=== PATIENT | male | born 1965 | race Caucasian/White ===

== ENCOUNTER 2023-06-04 06:43 | Outpatient (RCR) | payer OTHER, SELFPAY | END 2023-06-04 23:59 | disposition home or self-care (01) | LOC: RPT 06:43 | PROVIDERS: ATTENDING PHYSICIAN Specialist; FAMILY PHYSICIAN Family Medicine | DX: Z47.1 Aftercare following joint replacement surgery (principal); Z96.651 Presence of right artificial knee joint; M17.11 Unilateral primary osteoarthritis, right knee; R26.89 Other abnormalities of gait and mobility; Z73.6 Limitation of activities due to disability | CPT/HCPCS: 97010; 97110; 97140; 97162; 97530 ==

== ENCOUNTER 2023-06-24 09:02 | Outpatient (RCR) | payer OTHER, SELFPAY | END 2023-06-24 23:59 | disposition home or self-care (01) | LOC: RPT 09:02 | PROVIDERS: ATTENDING PHYSICIAN Specialist; FAMILY PHYSICIAN Family Medicine | DX: Z47.1 Aftercare following joint replacement surgery (principal); Z96.651 Presence of right artificial knee joint; M17.11 Unilateral primary osteoarthritis, right knee; R26.89 Other abnormalities of gait and mobility; Z73.6 Limitation of activities due to disability | CPT/HCPCS: 97010; 97110; 97140 ==

== ENCOUNTER 2023-07-30 06:42 | Outpatient (RCR) | payer OTHER, SELFPAY | END 2023-07-30 23:59 | disposition home or self-care (01) | LOC: RPT 06:42 | PROVIDERS: ATTENDING PHYSICIAN Specialist; FAMILY PHYSICIAN Family Medicine | DX: Z47.1 Aftercare following joint replacement surgery (principal); Z96.651 Presence of right artificial knee joint; M17.11 Unilateral primary osteoarthritis, right knee; Z73.6 Limitation of activities due to disability | CPT/HCPCS: 97010; 97110; 97140; 97530 ==

== ENCOUNTER 2023-08-09 06:27 | Emergency (ER) | payer OTHER, SELFPAY ==
[2023-08-09 06:37] VITALS: BP 161/104
[2023-08-09 06:59] VITALS: BMI 32.0
--- NOTE | 2023-08-09 07:23 | ED.GENMED ---
History of Present Illness
General
Chief Complaint: Skin Problem
Source: patient
Exam Limitations: none
Time Seen by Provider: 08/09/23 06:56
Nursing documentation reviewed up to this point in time: agreed with
Travel History
Have you had any contact with someone who has COVID-19?: No
Do you have any symptoms of coronavirus? Fever > 100 degrees, chills, cough, shortness of breath, sore throat, loss of taste or smell, muscle aches, or headache?: No
History of Present Illness
History of Present Illness:
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
cutting weight for wrestling no involvement of his eye,
Past History
Past History
ED Past Medical History: Other (Shingles)
ED Past Surgical History: Orthopedic
Social History
Tobacco: Non-smoker
Alcohol: None
Drug: None
Personal:
Living: with family
Employment: Employed
Review of Systems
Review of Systems
All Other Systems: Not applicable
Constitutional: Denies fever or fatigue
Respiratory: Denies trouble breathing
Skin: Reports itching, rash and other (Painful rash)
Phy Exam
Physical Exam
Physical Exam:
Physical Exam
General: no apparent distress, not acutely ill
Neck: Zoster type rash right mid posterior neck into the shoulder on the right not involving the face
Heart: s1/s2 regular rate and rhythm, no murmur. equal radial pulses.
Lungs: no acute respiratory distress. clear bilaterally
Neuro: alert and oriented. no focal neurological deficits
Skin: Described
Psychiatric: well kept. interactive and cooperative
Extremities: no edema.
Course
Orders/Labs/Results
Orders:
Orders
08/09/23 07:13
Oxycodone/Acetaminophen [Percocet 5/325] 1 tablet PO NOW STA
Valacyclovir HCl [Valtrex] 1,000 mg PO NOW STA
Viscous Lidocaine 2% [Xylocaine Viscous Cup] 15 ml S NOW STA
Vital Signs
Initial and Last Documented VS:
Initial Vital Signs
Temp Pulse Resp BP Pulse Ox
97.8 F 69 16 161/104 98
08/09/23 06:37 08/09/23 06:37 08/09/23 06:37 08/09/23 06:37 08/09/23 06:37
Last Documented Vital Signs
Temp Pulse Resp BP Pulse Ox
97.8 F 69 16 161/104 98
08/09/23 06:37 08/09/23 06:37 08/09/23 06:37 08/09/23 06:37 08/09/23 06:37
MDM/Problems Addressed
Differential Diagnosis Includes:
Shingles cellulitis contusion
MDM/Problems Addressed:
Looks like shingles
*Pulse Oximetry
Patient hypoxic: no
*Critical Care Note
Total Time (30-74mins, 75-104mins- exclusive of procedures): Not Applicable
Update Note
Update Note:
Looks like shingles had 2 doses of acyclovir we will switch to Valtrex, topical lidocaine as needed Motrin Oxy
ED Attending Note
-
Portions of this chart may have been created with voice recognition software.� Occasional wrong word or��sound alike� substitutions may have occurred due to the inherent limitations of voice recognition software.
Discharge Plan
Departure
Patient Disposition: Home (Routine Discharge)
Date of Disposition: 08/09/23
Time of Disposition: 07:17
Patient with high blood pressure during this ER visit?: No
Condition: Good
Covid-19: Not Applicable
Discharge Problem:
Shingles rash
Instructions: Shingles
Prescriptions:
New
ibuprofen 600 mg tablet
600 mg PO Q8H PRN (Reason: Pain) Qty: 20 0RF
valacyclovir [Valtrex] 1 gram tablet
1,000 mg PO BID Qty: 20 0RF
oxycodone 5 mg tablet
5 mg PO Q6H PRN (Reason: Pain) Qty: 14 0RF
lidocaine HCl [Lidocaine Viscous] 2 % solution
10 ml topical BID PRN (Reason: Pain) Qty: 100 0RF
No Action
tamsulosin 0.4 MG capsule
0.4 mg PO DAILY
cyanocobalamin (vitamin B-12) 1,000 MCG tablet
500 mcg PO DAILY
calcium carbonate 500 MG tablet,chewable
500 mg PO DAILY
turmeric root extract 500 MG capsule
500 mg PO DAILY
[id number]-[id number]-ogg-epa-fish oil 1 EACH capsule
1 ea PO DAILY
ergocalciferol (vitamin D2) 50 MCG capsule
50 mcg PO DAILY
Referrals:
Moustapha Swanson DO [Family Provider] - Next open appointment
Interventions
Interventions:
*Risk Screen - Suicide Last Done: 08/09/23 06:37
*General Assessment Last Done: 08/09/23 06:37
*Neglect/Abuse Screening Last Done: 08/09/23 06:37
ED- Fall Risk Assessment Last Done: 08/09/23 06:37
*ED COVID-19 Vaccine History Last Done: 08/09/23 06:37
ED-Skin Assessment Last Done: 08/09/23 06:59
Discharge Date and Time
Print Language: DIVEHI
[2023-08-09] MEDS: PERCOCET 5/325 1 TABLET PO (07:38)
[2023-08-09] MEDS: XYLOCAINE VISCOUS CUP 15 ML S (07:38)
[2023-08-09] MEDS: VALTREX 1000 MG PO (07:38)
[2023-08-09 09:38] VITALS: BP 156/115
== END 2023-08-09 09:39 | disposition home or self-care (01) ==
LOC: EMR 06:27
PROVIDERS: EMERGENCY PHYSICIAN Emergency Medicine; FAMILY PHYSICIAN Family Medicine
DX: B02.9 Zoster without complications (principal)
CPT/HCPCS: 99282

== ENCOUNTER 2023-08-20 06:53 | Outpatient (RCR) | payer OTHER, SELFPAY | END 2023-08-20 10:54 | disposition home or self-care (01) | LOC: RPT 06:53 | PROVIDERS: ATTENDING PHYSICIAN Specialist; FAMILY PHYSICIAN Family Medicine | DX: Z47.1 Aftercare following joint replacement surgery (principal); Z96.651 Presence of right artificial knee joint; M17.11 Unilateral primary osteoarthritis, right knee; Z73.6 Limitation of activities due to disability | CPT/HCPCS: 97010; 97110; 97140; 97530 ==

== ENCOUNTER 2024-05-08 11:13 | Emergency (ER) | payer OTHER, SELFPAY ==
[2024-05-08 11:16] VITALS: BP 151/100
[2024-05-08 11:39] LABS: Urine Albumin Negative (Neg - Trace); Urine Bilirubin Negative (Negative); Urine Character Clear (Clear); Urine Color Yellow; Urine Glucose Negative (Negative); Urine Ketone Negative (Negative); Urine Leukocyte Negative (Negative); Urine Nitrite Negative (Negative); Urine Occult Blood 4+ (Negative); Urine Urobilinogen Negative (Neg - 1+); Urine pH 6.5 (5.0-9.0)
--- NOTE | 2024-05-08 11:40 | ED.GENMED ---
History of Present Illness
General
Chief Complaint: Flank Pain
Source: patient
Exam Limitations: none
Time Seen by Provider: 05/08/24 11:35
Nursing documentation reviewed up to this point in time: agreed with
History of Present Illness
History of Present Illness:
58-year-old male with history of kidney stones states 2 days ago he developed right lower abdominal pain, it subsided some then came back today in the right flank area now 5/10. He denies fever or chills. Denies nausea or vomiting. He states his
urine was dark yesterday and today he feels a little discomfort with urination.
Past History
Past History
ED Past Medical History: Other (Sleep apnea with CPAP), Other (Kidney stones) and Other (Shingles)
ED Past Surgical History: Orthopedic and Tonsilectomy
Social History
Tobacco: Non-smoker
Alcohol: None
Drug: None
Personal:
Living: with family
Employment: Employed
Review of Systems
Review of Systems
Allergies reviewed?: Yes
All Other Systems: ROS reviewed and negative except as documented in HPI and ROS
Constitutional: Denies fever or chills
Respiratory: Denies trouble breathing
Cardiac: Denies chest pain
ABD/GI: Reports abdominal pain; Denies nausea, vomiting or diarrhea
: Reports dysuria (Mild discomfort with urination today) and dark urine; Denies frequency or difficulty voiding
Musculoskeletal: Reports no symptoms
Skin: Reports no symptoms
Neurological: Reports no symptoms
Phy Exam
Physical Exam
Physical Exam:
GENERAL: No acute distress. A&Ox3.
CONSTITUTIONAL: Afebrile.
EYES: clear, conjunctivae normal
ENMT: moist mucus membranes
RESPIRATORY: Regular respirations, nonlabored, lungs clear.
CARDIOVASCULAR: Regular rate and rhythm, no murmurs, no rubs.
GI: Soft, nontender, normal BS, right flank tenderness to percussion
MUSCULOSKELETAL: Moves with ease. Well perfused.
SKIN: Warm, dry, pink
PSYCH: Normal mood and affect. Well kept, interactive and appropriate
NEUROLOGIC: Awake, alert and oriented. No focal neurological deficits
Course
Orders/Labs/Results
Orders:
Orders
05/08/24 11:24
Urinalysis Reflex To Culture Urgent
Date Specimen was Collected: 05/08/24
Time Specimen was Collected: 11:21
Urine Microscopic Reflex Cult Urgent
05/08/24 11:39
CT Abd/pel Without Iv Or Oral Urgent
Comment:
Reason For Exam: R flank pain hx stones
05/08/24 11:51
Complete Blood Count/With Diff Urgent
Comprehensive Metabolic Panel Urgent
Ketorolac [Toradol] 15 mg IV NOW STA
05/08/24 13:10
Tamsulosin [Flomax] 0.4 mg PO NOW STA
Abnormal Lab Results
05/08/24 05/08/24
11:24 11:51
WBC 4.7 L 10^3/uL
(4.8-10.8)
Absolute Lymphs (auto) 1.0 L 10^3/uL
(1.2-3.4)
Total Bilirubin 1.8 H mg/dl
(0.2-1.3)
Ur Occult Blood Reflex 4+ A
(Negative)
Urine RBC 16-20 A /HPF
(0-2)
05/08/24 11:51
05/08/24 11:51
Vital Signs
Initial and Last Documented VS:
Initial Vital Signs
Temp Pulse Resp BP Pulse Ox
97.5 F 74 18 151/100 99
05/08/24 11:16 05/08/24 11:16 05/08/24 11:16 05/08/24 11:16 05/08/24 11:16
Last Documented Vital Signs
Temp Pulse Resp BP Pulse Ox
97.5 F 74 18 151/100 97
05/08/24 11:16 05/08/24 11:16 05/08/24 11:16 05/08/24 11:16 05/08/24 12:15
MDM/Problems Addressed
Differential Diagnosis Includes:
Kidney stone, UTI
MDM/Problems Addressed:
58-year-old male with history of kidney stones states 2 days ago he developed right lower abdominal pain, it subsided some then came back today in the right flank area now 5/10. He denies fever or chills. Denies nausea or vomiting. He states his
urine was dark yesterday and today he feels a little discomfort with urination.
Afebrile, NAD
12:45 PM:
CBC normal
CMP with no clinically significant abnormality
UA: 4+ blood, 16-20 RBCs, no infection
CT abdomen pelvis plain: Radiology report read: IMPRESSION:
Approximate 3 mm calculus at the distal right ureterovesical junction with mild right hydroureteronephrosis.
Tiny nonobstructing left renal calculus.
Small simple right renal cyst.
Unremarkable appendix.
Colonic diverticulosis.
1:15 PM:
Pt pain is minimal. Stable for discharge
Pt referred to Urology for f/u
BP 132/78
*Critical Care Note
Total Time (30-74mins, 75-104mins- exclusive of procedures): Not Applicable
ED Attending Note
-
Portions of this chart may have been created with voice recognition software.� Occasional wrong word or��sound alike� substitutions may have occurred due to the inherent limitations of voice recognition software.
Discharge Plan
Departure
Patient Disposition: Home (Routine Discharge)
Date of Disposition: 05/08/24
Time of Disposition: 13:26
Patient with high blood pressure during this ER visit?: No
Condition: Good
Discharge Problem:
Calculus of distal right ureter
Instructions: Kidney Stones (DC), How to Strain Your Urine
Prescriptions:
New
tamsulosin [Flomax] 0.4 mg capsule
0.4 mg PO DAILY Qty: 5 0RF
hydrocodone-acetaminophen 5-300 mg tablet
1 tab PO Q4H PRN (Reason: Pain) Qty: 7 0RF
No Action
tamsulosin 0.4 MG capsule
0.4 mg PO DAILY
cyanocobalamin (vitamin B-12) 1,000 MCG tablet
500 mcg PO DAILY
calcium carbonate 500 MG tablet,chewable
500 mg PO DAILY
turmeric root extract 500 MG capsule
500 mg PO DAILY
[id number]-ylc-epa-fish oil 1 EACH capsule
1 ea PO DAILY
ergocalciferol (vitamin D2) 50 MCG capsule
50 mcg PO DAILY
ibuprofen 600 mg tablet
600 mg PO Q8H PRN (Reason: Pain) Qty: 20 0RF
valacyclovir [Valtrex] 1 gram tablet
1,000 mg PO BID Qty: 20 0RF
oxycodone 5 mg tablet
5 mg PO Q6H PRN (Reason: Pain) Qty: 14 0RF
lidocaine HCl [Lidocaine Viscous] 2 % solution
10 ml topical BID PRN (Reason: Pain) Qty: 100 0RF
Referrals:
Moustapha Swanson DO [Family Provider] -
Tripp Mayer MD [Active] - Call in 1-3 days for appt
Activity Restrictions/Additional Instructions:
As we discussed, ibuprofen 600 mg every 6 hours as needed for pain.
I sent a prescription for Flomax to your pharmacy, started tomorrow as you were given a dose here today
Return here immediately for fever, chills, worsening pain despite the ibuprofen, vomiting or feeling sicker in any way
Call the Urologist tomorrow
Interventions
Interventions:
*Risk Screen - Suicide Last Done: 05/08/24 11:16
*General Assessment Last Done: 05/08/24 11:16
*Neglect/Abuse Screening Last Done: 05/08/24 11:16
*ED COVID-19 Vaccine History Last Done: 05/08/24 11:54
*Nursing Disposition Last Done: 05/08/24 14:01
WT-Yycnbc-Iffhiknltx Assessment Last Done: 05/08/24 12:01
ED-Male Genitourinary Assessment Last Done: 05/08/24 12:01
Discharge Date and Time
Discharge Date/Time: 05/08/24 14:01
Print Language: EMIRATI
[2024-05-08] MEDS: TORADOL 15 MG IV (11:53)
[2024-05-08 11:54] LABS: Urine Red Blood Cell 16-20 /HPF (0-2); Urine White Cell 0-2 /HPF (0-5)
[2024-05-08 12:07] LABS: % Basophils 1.5 % (0-2); % Eosinophils 2.5 % (0-6); % Immature Granulocytes 0.2 % (0-0.5); % Lymphocytes 21.9 % (20.5-51.1); % Monocytes 8.9 % (1.7-9.3); Absolute Basophils 0.1 10^3/uL (0-0.2); Absolute Eosinophils 0.1 10^3/uL (0-0.7); Absolute Monocytes 0.4 10^3/uL (0.1-0.6); Absolute Neutrophils 3.1 10^3/uL (1.4-6.5); Hematocrit 42.3 % (39.0-52.0); Hemoglobin 14.7 g/dL (13.0-18.0); Mean Corp Hgb Conc. 34.8 g/dL (33.0-37.0); Mean Corpuscular Hgb 30.8 pg (27.0-31.0); Mean Corpuscular Volume 88.5 fL (80.0-94.0); Mean Platelet Volume 10.2 fL (7.4-10.4); Nucleated Red Blood Cells % 0 % (-); Platelet Count 200 10^3/uL (130-400); Red Blood Cell Count 4.78 10^6/uL (4.70-6.10); Red Cell Dist. Width 12.3 % (11.5-14.5); White Blood Cell Count 4.7 10^3/uL (4.8-10.8)
[2024-05-08 12:29] LABS: ALT (SGPT) 12 U/L (0-50); AST (SGOT) 18 U/L (17-59); Albumin 4.5 g/dl (3.5-5.0); Alkaline Phosphatase 62 U/L (38-126); Blood Urea Nitrogen 16 mg/dl (9-20); Calcium 9.4 mg/dl (8.4-10.2); Carbon Dioxide 30 mmol/L (22-30); Chloride 103 mmol/L (98-107); Glucose 97 mg/dl (70-99); Potassium 4.4 mmol/L (3.5-5.1); Sodium 139 mmol/L (135-145); Total Bilirubin 1.8 mg/dl (0.2-1.3); Total Protein 6.5 g/dl (6.3-8.2); eGFR > 60.00
[2024-05-08] MEDS: FLOMAX 0.4 MG PO (13:44)
== END 2024-05-08 14:01 | disposition home or self-care (01) ==
LOC: EMR 11:13
PROVIDERS: Emergency Medicine; Registered Nurse; EMERGENCY PHYSICIAN Emergency Medicine; FAMILY PHYSICIAN Family Medicine
DX: N13.2 Hydronephrosis with renal and ureteral calculous obstruction (principal); G47.30 Sleep apnea, unspecified; Z87.442 Personal history of urinary calculi
CPT/HCPCS: 99284; 96374; 74176; 80053; 81003; 81015; 85025

== ENCOUNTER → 2024-06-22 08:33 | Outpatient (REF) | payer OTHER, SELFPAY | LOC: RCS 08:33 | PROVIDERS: ATTENDING PHYSICIAN Orthopaedic Surgery Hand Surgery; FAMILY PHYSICIAN Family Medicine | DX: Z01.818 Encounter for other preprocedural examination (principal) | CPT/HCPCS: 93005 ==

== ENCOUNTER → 2024-06-28 14:20 | Outpatient (REF) | payer OTHER, SELFPAY | LOC: HWRAD 14:20 | PROVIDERS: ATTENDING PHYSICIAN Orthopaedic Surgery Hand Surgery; FAMILY PHYSICIAN Family Medicine | DX: M19.111 Post-traumatic osteoarthritis, right shoulder (principal) | CPT/HCPCS: 73200 ==

== ENCOUNTER → 2024-07-04 15:59 | Outpatient (REF) | payer OTHER, SELFPAY | LOC: REG 15:59 | PROVIDERS: ATTENDING PHYSICIAN Family Medicine | DX: Z01.818 Encounter for other preprocedural examination (principal) | CPT/HCPCS: 71046 ==